=== PATIENT | female | born 1995 ===

== ENCOUNTER 2021-04-11 09:58 | Inpatient (IN) | payer BC ==
[2021-04-11] MEDS ORDERED: Promethazine HCl 25 MG/ML VIAL IM PRN ×2 (10:15→13:08)
[2021-04-11] MEDS ORDERED: hydrALAZINE 20 MG/ML VIAL SLOW IVP PRN ×2 (10:15→19:32)
[2021-04-11] MEDS ORDERED: CEFAZOLIN 2 GM in Premix Bag 1 BAG IVPB SCH (10:15)
[2021-04-11] MEDS ORDERED: Famotidine/PF 20 mg/2ml Vial SLOW IVP PRN (10:15)
[2021-04-11] MEDS ORDERED: Ondansetron PF 4 MG/2 ML Vial IVP PRN ×3 (10:15→19:32)
[2021-04-11] MEDS ORDERED: Bicitra 30 ML UDCUP PO PRN (10:15)
[2021-04-11 10:16] VITALS: BMI 38.2
[2021-04-11] MEDS: Lactated Ringer's 1,000 ML IV SCH (11:00)
[2021-04-11 11:39] LABS: Hemoglobin 13.1 g/dL (12.0-15.5); Mean Corpuscular HGB CONC 33.9 g/dL (32.0-36.0); Mean Corpuscular Hemoglobin 31.5 pg (27.0-33.0); Mean Corpuscular Volume 92.8 fl (81.6-98.3); Platelet Count 102 10x3/uL (150-450); RBC Distribution Width 14.4 % (11.5-14.5); Red Blood Cell (RBC) Count 4.16 10x6/uL (3.90-5.03)
[2021-04-11] MEDS ORDERED: PHENYLEPHRINE-NS 100 MCG/ML 10 ML SYRINGE ONE ×2 (11:41→12:11)
[2021-04-11] MEDS ORDERED: ePHEDrine Sulfate 50 MG/10 ML VIAL ONE (11:41)
[2021-04-11] MEDS ORDERED: Dexamethasone 4 mg/ml Vial ONE (11:41)
[2021-04-11] MEDS ORDERED: Morphine PF 10 MG/10 ML VIAL ONE (11:41)
[2021-04-11] MEDS ORDERED: Phenylephrine 10 MG/ML VIAL ONE (11:41)
[2021-04-11] MEDS ORDERED: Ondansetron PF 4 MG/2 ML Vial ONE (11:41)
[2021-04-11] MEDS ORDERED: Ketorolac Tromethamine 30 MG/ML VIAL ONE (11:42)
[2021-04-11] MEDS ORDERED: Oxytocin 10 UNITS/ML VIAL ONE (11:42)
[2021-04-11 12:08] LABS: Hep B Surf Ag Non-Reactive S/CO (NonReactive); Syphilis Antibody Nonreactive (Nonreactive); Syphilis Antibody Index 0.03 S/CO (<1.00 Non-Reactive)
[2021-04-11 12:10] LABS: HBSAg Index 0.16 S/CO (0-0.99)
[2021-04-11] MEDS ORDERED: Fentanyl 100 MCG/2 ML VIAL SLOW IVP PRN (13:08)
[2021-04-11] MEDS ORDERED: Ondansetron HCl/PF 4 MG/2 ML Vial IVP PRN (13:08)
[2021-04-11] MEDS ORDERED: Naloxone HCl 0.4 mg/ml Vial IV PRN (13:08)
[2021-04-11] MEDS ORDERED: Hydrocerin (Eucerin) Cream 120 gm Jar TOP PRN (13:08)
[2021-04-11] MEDS ORDERED: Naloxone HCl 0.4 mg/ml Vial IVP PRN ×2 (13:08)
[2021-04-11] MEDS ORDERED: Promethazine HCl 25 MG SUPP PR PRN (13:08)
[2021-04-11] MEDS ORDERED: Meperidine HCl/PF 25 MG/ML VIAL SLOW IVP PRN (13:08)
[2021-04-11] MEDS ORDERED: diphenhydrAMINE 50 MG/ML VIAL IVP PRN (13:08)
[2021-04-11] MEDS ORDERED: Ketorolac Tromethamine 30 MG/ML VIAL IVP SCH (13:15)
[2021-04-11] MEDS ORDERED: Communication Order-Pharmacy FS SCH (13:15)
[2021-04-11 14:39] LABS: SARS-CoV-2 NAA Rapid Test Not Detected (NotDetected)
[2021-04-11] MEDS: Ketorolac Tromethamine 30 MG/ML VIAL IVP PRN ×2 (16:41→23:49)
[2021-04-11] MEDS ORDERED: Lanolin Ointment 7 GM TUBE TOP PRN (19:32)
[2021-04-11] MEDS ORDERED: Measles/Mumps/Rubella 10 MCG/0.5 ML VIAL SC ONE (19:32)
[2021-04-11] MEDS ORDERED: Simethicone Chewable 80 MG TAB PO PRN (19:32)
[2021-04-11] MEDS ORDERED: Bisacodyl 10 MG SUPP PR PRN (19:32)
[2021-04-11] MEDS ORDERED: Varicella virus, LIVE 0.5 ML VIAL SC ONE (19:32)
[2021-04-11] MEDS ORDERED: diphenhydrAMINE 25 MG CAP PO PRN (19:32)
[2021-04-11] MEDS ORDERED: Boostrix 0.5 ML (Tdap) VIAL IM ONE (19:32)
[2021-04-12] MEDS ORDERED: HYDROcodone/Acetaminophen 5/325 mg Tablet PO PRN (01:15)
[2021-04-12] MEDS ORDERED: Zolpidem Tartrate 5 MG TAB PO PRN (01:15)
[2021-04-12] MEDS: Docusate 100 MG CAP PO SCH ×3 (02:22→21:38)
[2021-04-12] MEDS: Ferrous Sulfate 325 MG TAB PO SCH ×3 (02:22→23:55)
[2021-04-12 06:20] LABS: Platelet Count 92 10x3/uL (150-450)
[2021-04-12] MEDS: Lactated Ringer's 1,000 ML IV SCH (07:30)
[2021-04-12 07:39] LABS: Hemoglobin 10.7 g/dL (12.0-15.5); Mean Corpuscular HGB CONC 33.4 g/dL (32.0-36.0); Mean Corpuscular Hemoglobin 31.7 pg (27.0-33.0); Mean Corpuscular Volume 94.7 fl (81.6-98.3); RBC Distribution Width 14.1 % (11.5-14.5); Red Blood Cell (RBC) Count 3.38 10x6/uL (3.90-5.03); White Blood Cell (WBC) Count 16.8 10x3/uL (3.5-10.5)
[2021-04-12] MEDS: Prenatal Vitamin 1 TAB PO SCH (08:30)
[2021-04-12] MEDS: Ibuprofen 800 MG TAB PO SCH ×4 (08:52→23:50)
[2021-04-12] MEDS: HYDROcodone/Acetaminophen 5/325 mg Tablet PO PRN (08:53)
[2021-04-13] MEDS ORDERED: Ibuprofen 800 MG TAB PO SCH (06:00)
[2021-04-13] MEDS: HYDROcodone/Acetaminophen 5/325 mg Tablet PO PRN (07:22)
[2021-04-13 07:46] VITALS: BP 115/60; TEMP 97.6
[2021-04-13] MEDS: Prenatal Vitamin 1 TAB PO SCH (09:50)
[2021-04-13] MEDS: Ferrous Sulfate 325 MG TAB PO SCH (09:56)
[2021-04-13] MEDS: Docusate 100 MG CAP PO SCH (09:56)
== END 2021-04-13 11:20 | disposition home or self-care (01) | DRG 784 ==
LOC: CSHLD 09:58 → CSHPP 20:47
PROVIDERS: ADMIT Obstetrics & Gynecology; ATTEND Obstetrics & Gynecology
PROC: 10D00Z1 Extraction of Products of Conception, Low, Open Approach (ICD-10-PCS; principal; 2021-04-11)
PROC: 0UT70ZZ Resection of Bilateral Fallopian Tubes, Open Approach (ICD-10-PCS; 2021-04-11)
DX: O34.211 Maternal care for low transverse scar from previous cesarean delivery (principal); O99.12 Other diseases of the blood and blood-forming organs and certain disorders involving the immune mechanism complicating childbirth; F32.A Depression, unspecified; Z20.822 Contact with and (suspected) exposure to COVID-19; Z3A.39 39 weeks gestation of pregnancy; Z37.0 Single live birth; D69.6 Thrombocytopenia, unspecified; O99.344 Other mental disorders complicating childbirth
CPT/HCPCS: 36415; 85027; 86780; 86850; 86900; 86901; 87340; 88302; J0690; J1100; J1885; J2274; J2370; J2405; J2550; J2590; J7120; S0028; U0002